=== PATIENT | female | born 1975 | race Caucasian/White ===

== ENCOUNTER 2020-04-01 12:44 | Outpatient (CLI) | payer OTHER, SELFPAY ==
[2020-04-01 13:44] LABS: Basophils Absolute Auto 0.1 K/mm3 (0.0-0.1); Basophils Percent Auto 0.5 % (0.2-1.2); Eosinophils Absolute Auto 0.2 K/mm3 (0-0.3); Eosinophils Percent Auto 1.7 % (0-4.4); Hematocrit 44.9 % (37.0-47.0); Hemoglobin 14.6 g/dL (12.0-15.0); Immature Granulocyte Absolute 0.06 K/mm3 (0.00-0.031); Immature Granulocyte Percent A 0.6 % (0-0.5); Lymphocytes Absolute Auto 3.15 K/mm3 (0.9-3.2); Mean Corpuscular HGB Conc 32.5 g/dl (32-36); Mean Corpuscular Hemoglobin 27.9 pg (26-34); Mean Corpuscular Volume 85.9 fl (80-100); Mean Platelet Volume 9.2 fl (7.4-10.4); Monocytes Absolute Auto 0.9 K/mm3 (0.1-0.6); Monocytes Percent Auto 8.2 % (2.6-8.5); Neutrophils Absolute Auto 6.2 K/mm3 (1.3-6.7); Platelet Count Result 319 k/mm3 (150-375); Red Blood Count 5.23 M/mm3 (4.2-5.4); Red Cell Distribution Width 12.9 % (11.5-14.5); White Blood Count 10.5 K/mm3 (4.5-10.0)
[2020-04-01 15:01] LABS: Vitamin D 25 Hydroxy 17.2 ng/mL
[2020-04-04 21:15] LABS: FSH 3.3 mIU/mL (***); LH 2.3 mIU/mL (***)
[2020-04-05 13:45] LABS: Testosterone Free 3.4 pg/mL (0.1-6.4); Testosterone Total 29 ng/dL (2-45)
[2020-04-05 15:12] LABS: Vitamin B6 9.7 ng/mL (2.1-21.7)
[2020-04-08 01:37] LABS: Estradiol, Ultrasensitive 483 pg/mL
== END 2020-04-01 12:45 | disposition home or self-care (01) ==
PROVIDERS: PCP Family Medicine; Visit Provider Student in an Organized Health Care Education/Training Program
DX: N95.1 Menopausal and female climacteric states (principal)
CPT/HCPCS: 36415; 82306; 82607; 82670; 83001; 83002; 84207; 84402; 84403; 84443; 85025

== ENCOUNTER 2020-04-23 12:08 | Outpatient (CLI) | payer OTHER, SELFPAY ==
--- NOTE | 2020-04-23 | ECG_ITS ---
Measurements Intervals Purchase Rate: 67 P: 6 UT: 138 QRS: -5 QRSD: 93 T: 1 QT: 386 QTc: 408 Interpretive Statements SINUS RHYTHM BORDERLINE T WAVE ABNORMALITY- ANT/INF LEADS BORDERLINE ECG Electronically Signed On 04-23-2020 12:46:44 CDT by Jamie Cotton D.O.
[2020-04-23 13:36] LABS: Blood Urea Nitrogen 15 mg/dL (7-17); Calcium 9.2 mg/dL (8.4-10.2); Carbon Dioxide 26 mmol/L (22-30); Chloride 103 mmol/L (98-107); Estimated Glomerular Filt Rate > 60; Glucose 91 mg/dL (65-105); Potassium 3.8 mmol/L (3.4-5.0); Sodium 138 mmol/L (137-145)
== END 2020-04-23 12:09 | disposition home or self-care (01) ==
PROVIDERS: PCP Family Medicine; Visit Provider Internal Medicine Cardiovascular Disease
DX: I49.3 Ventricular premature depolarization (principal); R00.2 Palpitations
CPT/HCPCS: 36415; 80048; 83735; 93005

== ENCOUNTER 2020-08-31 11:24 | Outpatient (CLI) | payer OTHER, SELFPAY ==
[2020-08-31 12:31] LABS: Hemoglobin A1C 5.4 % (<5.7)
[2020-08-31 12:39] LABS: Cholesterol 202 mg/dL (0-200); HDL Direct 43 mg/dL; Triglycerides 125 mg/dL (<150)
[2020-08-31 12:50] LABS: LDL Cholesterol Direct 138 mg/dL
[2020-08-31 13:04] LABS: Free T4 Free Thyroxine 0.77 ng/mL (0.78-2.19); Vitamin D 25 Hydroxy 28.9 ng/mL
[2020-09-03 05:54] LABS: Thyroglobulin 20.3 ng/mL (2.8-40.9); Thyroglobulin Antibodies <1 IU/mL (<=1); Thyroid Peroxidase Antibodies <1 IU/mL (<9)
== END 2020-08-31 11:25 | disposition home or self-care (01) ==
LOC: ANHLAB 11:26
PROVIDERS: PCP Family Medicine; Visit Provider Obstetrics & Gynecology
DX: N95.1 Menopausal and female climacteric states (principal); R00.2 Palpitations; R53.83 Other fatigue; I10 Essential (primary) hypertension; E66.01 Morbid (severe) obesity due to excess calories
CPT/HCPCS: 36415; 80061; 82306; 82607; 83036; 84432; 84439; 84443; 86376; 86800

== ENCOUNTER 2020-09-15 11:28 | Outpatient (CLI) | payer OTHER, SELFPAY ==
--- NOTE | ~2020-09-15 | XR_ITS ---
XR chest 2V DATE: 09/15/2020 11:48 INDICATION: Covid 19 positive TECHNIQUE: PA and lateral views COMPARISON: None FINDINGS: Normal heart size. No hilar or mediastinal enlargement. No pulmonary infiltrate or consolid ation, pleural effusion or pulmonary vascular congestion or pneumothorax. Surgical clips overlie the right upper quadrant, consistent with cholecystectomy. Prominent degenerative disc disease in the lower cervical spine. IMPRESSION: No active cardiopulmonary disease Status post cholecystectomy Reviewed, dictated and finalized at location A.
== END 2020-09-15 11:29 | disposition home or self-care (01) ==
PROVIDERS: PCP Family Medicine; Visit Provider Physician Assistant Medical
DX: U07.1 COVID-19 (principal); Z90.49 Acquired absence of other specified parts of digestive tract
CPT/HCPCS: 71046

== ENCOUNTER 2020-09-23 15:42 | Outpatient (CLI) | payer OTHER, SELFPAY ==
--- NOTE | ~2020-09-23 | MM_ITS ---
EXAMINATION: MM screening [facility] w [facility] HISTORY: Screening TECHNIQUE: Craniocaudal and mediolateral oblique 3-D tomosynthesis images were obtained and synthetic 2-D images were generated. CAD analysis was submitted and interpreted. COMPARISON: Comparison to multiple prior studies sequentially, with oldest reviewed study dated 01/2014. BREAST PARENCHYMAL COMPOSITION: There are scattered areas of fibroglandular density. FINDINGS: There is no evidence of suspicious mass, calcification, or architectural distortion to sugg est malignancy in either breast. There has been no suspicious interval change. IMPRESSION: 1. No mammographic evidence of malignancy. 2. Recommend routine screening mammography in one year. BI-RADS Category 1: Negative Reviewed, dictated and finalized at location A. SCIENTIFIC
== END 2020-09-23 15:43 | disposition home or self-care (01) ==
LOC: ANHIMG 15:44
PROVIDERS: PCP Family Medicine; Visit Provider Obstetrics & Gynecology
DX: Z12.31 Encounter for screening mammogram for malignant neoplasm of breast (principal)
CPT/HCPCS: 77063; 77067

== ENCOUNTER 2020-10-18 15:50 | Outpatient (CLI) | payer OTHER, SELFPAY ==
--- NOTE | ~2020-10-18 | CT_ITS ---
EXAMINATION: CT sinus wo con DATE: 10/18/2020 16:10 INDICATION: Sinusitis TECHNIQUE: Computed tomography (CT) of the paranasal sinuses was performed without intravenous contra st. The dose-length product was 271.75 mGy-cm. Automated exposure control and iterative reconstructio n technique were employed. COMPARISON: None FINDINGS: There is no significant mucosal thickening. No abnormal fluid in the sinuses. Ostiomeatal u nits are patent. Rightward nasal septal deviation. Mastoids are pneumatized. IMPRESSION: 1. No significant sinus disease. Reviewed, dictated and finalized at location B. 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
== END 2020-10-18 15:51 | disposition home or self-care (01) ==
PROVIDERS: PCP Family Medicine; Visit Provider Otolaryngology
DX: J32.1 Chronic frontal sinusitis (principal)
CPT/HCPCS: 70486

== ENCOUNTER 2021-02-17 07:30 | Outpatient (CLI) | payer OTHER, SELFPAY ==
[2021-02-17 08:52] LABS: Free T4 Free Thyroxine 1.01 ng/mL (0.78-2.19); Vitamin D 25 Hydroxy 37.2 ng/mL
[2021-02-22 20:25] LABS: Estradiol, Ultrasensitive 26 pg/mL
[2021-02-23 00:56] LABS: Testosterone Total 13 ng/dL (2-45)
[2021-02-23 13:13] LABS: FSH 5.3 mIU/mL (***); LH 1.5 mIU/mL (***); Progesterone 1.1 ng/mL (***); Triiodothyronine T3 Free 3.7 pg/mL (2.3-4.2)
== END 2021-02-17 07:31 | disposition home or self-care (01) ==
LOC: ANHLAB 07:33
PROVIDERS: PCP Family Medicine; Visit Provider Obstetrics & Gynecology
DX: E03.9 Hypothyroidism, unspecified (principal); F41.1 Generalized anxiety disorder
CPT/HCPCS: 36415; 82306; 82607; 82670; 83001; 83002; 84144; 84403; 84439; 84443; 84481

== ENCOUNTER 2022-02-13 09:28 | Outpatient (CLI) | payer OTHER, SELFPAY ==
--- NOTE | ~2022-02-13 | MM_ITS ---
EXAMINATION: MM screening [facility] BI w lala HISTORY: Screening mammogram TECHNIQUE: Craniocaudal and mediolateral oblique 3-D tomosynthesis images were obtained and synthetic 2-D images were generated. CAD analysis was submitted and interpreted. COMPARISON: 09/23/2020, 08/05/2019, 07/16/2018 BREAST PARENCHYMAL COMPOSITION: There are scattered areas of fibroglandular density. FINDINGS: There is no suspicious mass, calcification, or architectural distortion to suggest malignan cy in either breast. There has been no suspicious interval change. IMPRESSION: 1. No mammographic evidence of malignancy. 2. Recommend routine screening mammography in one year. BI-RADS Category 1: Negative Reviewed, dictated and finalized at location A.
== END 2022-02-13 09:29 | disposition home or self-care (01) ==
LOC: ANHIMG 09:30
PROVIDERS: PCP Family Medicine; Visit Provider Obstetrics & Gynecology
DX: Z12.31 Encounter for screening mammogram for malignant neoplasm of breast (principal)
CPT/HCPCS: 77063; 77067

== ENCOUNTER 2023-04-04 07:55 | Outpatient (CLI) | payer OTHER, SELFPAY ==
--- NOTE | ~2023-04-04 | MM_ITS ---
EXAMINATION: MM screening [facility] BI w lala HISTORY: Screening mammogram TECHNIQUE: Craniocaudal and mediolateral oblique 3-D tomosynthesis images were obtained and synthetic 2-D images were generated. CAD analysis was submitted and interpreted. COMPARISON: 02/13/2022, 09/23/2020, 08/05/2019 BREAST PARENCHYMAL COMPOSITION: There are scattered areas of fibroglandular density. FINDINGS: No suspicious mass, calcification, or architectural distortion are identified in either jorge luis ast to suggest malignancy. There has been no suspicious interval change. IMPRESSION: 1. No mammographic evidence of malignancy. 2. Recommend routine screening mammography in one year. BI-RADS Category 1: Negative Reviewed, dictated and finalized at location A.
== END 2023-04-04 07:56 | disposition home or self-care (01) ==
LOC: ANHIMG 07:59
PROVIDERS: PCP Physician Assistant; Visit Provider Obstetrics & Gynecology
DX: Z12.31 Encounter for screening mammogram for malignant neoplasm of breast (principal)
CPT/HCPCS: 77063; 77067

== ENCOUNTER 2024-10-24 07:34 | Outpatient (CLI) | payer BC, SELFPAY ==
--- NOTE | ~2024-10-24 | MM_ITS ---
EXAMINATION: MM screening [facility] w [facility] HISTORY: Screening TECHNIQUE: Craniocaudal and mediolateral oblique 3-D tomosynthesis images were obtained and synthetic 2-D images were generated. CAD analysis was submitted and interpreted. COMPARISON: Comparison to multiple prior studies sequentially, with oldest reviewed study dated 03/15. BREAST PARENCHYMAL COMPOSITION: Not Dense: The breasts are almost entirely fatty. FINDINGS: There is no evidence of suspicious mass, calcification, or architectural distortion to sugg est malignancy in either breast. There has been no suspicious interval change. IMPRESSION: 1. No mammographic evidence of malignancy. 2. Recommend routine screening mammography in one year. BI-RADS Category 1: Negative Reviewed, dictated and finalized at location B. 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
== END 2024-10-24 07:35 | disposition home or self-care (01) ==
LOC: ANHIMG 07:38
PROVIDERS: PCP Physician Assistant; Visit Provider Obstetrics & Gynecology
DX: Z12.31 Encounter for screening mammogram for malignant neoplasm of breast (principal)
CPT/HCPCS: 77063; 77067

== ENCOUNTER 2025-10-30 08:18 | Outpatient (CLI) | payer OTHER, SELFPAY ==
--- NOTE | ~2025-10-30 | MM_ITS ---
EXAMINATION: MM screening [facility] w [facility] HISTORY: Screening. TECHNIQUE: Craniocaudal and mediolateral oblique 3-D tomosynthesis images were obtained and synthetic 2-D images were generated. CAD analysis was submitted and interpreted. COMPARISON: None available. BREAST PARENCHYMAL COMPOSITION: Not Dense: There are scattered areas of fibroglandular FINDINGS: No suspicious masses are seen. There are no suspicious calcifications. No unexplained architectural distortion is seen. There are no skin or nipple abnormalities identified. There is no adenopathy seen on the images submitted. IMPRESSION: No mammographic evidence to suggest malignancy is seen. The patient may return to screening mammography as per ACR guidelines. BI-RADS 1 - Negative. Reviewed, dictated and finalized at location C. 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
== END 2025-10-30 08:19 | disposition home or self-care (01) ==
LOC: ANHFOHIMG 08:22
PROVIDERS: PCP Nurse Practitioner; Visit Provider Obstetrics & Gynecology
DX: Z12.31 Encounter for screening mammogram for malignant neoplasm of breast (principal)
CPT/HCPCS: 77063; 77067